=== PATIENT | male | born 1980 | race Caucasian/White ===

== ENCOUNTER 2021-06-27 11:13 | Emergency (ER) | payer OTHER, SELFPAY ==
--- NOTE | 2021-06-27 11:20 | ECG_ITS ---
Measurements Intervals [place] Rate: 111 P: 35 [place]: 163 QRS: 59 QRSD: 86 T: 42 QT: 324 QTc: 441 Interpretive Statements SINUS TACHYCARDIA OTHERWISE UNREMARKABLE ECG ABNORMAL RHYTHM ECG NO PREVIOUS ECG AVAILABLE FOR COMPARISON Electronically Signed On 06-28-2021 8:36:36 CDT by Braeden Cardoso M.D.
--- NOTE | 2021-06-27 11:30 | ED.ANXIETY ---
HPI - Anxiety General Chief Complaint: Anxiety Stated Complaint: numb body and face Time Seen by Provider: 06/27/21 11:30 Source: patient History of Present Illness HPI narrative: 41-year-old male, smoker with anxiety was driving when he developed --numbness and tingling was started in his jaw and spread to his entire body. Gradually his numbness and tingling resolved over a period of 20 minutes. No other focal neuro deficits. No speech abnormality. No weakness. -- Epigastric discomfort which has resolved. no nausea, vomiting or diarrhea. -- extremity trauma no history of drug or alcohol use blood sugar was noted to be 144 MD complaint: anxiety Onset (ago): minute(s) ( 30 minutes ago) Symptoms: extremity numbness/tingling and sense of impending doom Severity: severe Quality: constant Place: outdoors History of similar episodes: Yes Provoking factors: none known Relieving factors: nothing Exacerbating factors: nothing Associated symptoms: denies other symptoms Related Data Home Medications Medication Instructions Recorded Confirmed Saxenda 3 mg DAILY 06/27/21 06/27/21 atorvastatin 20 mg DAILY 06/27/21 06/27/21 escitalopram oxalate [Lexapro] 20 mg DAILY 06/27/21 06/27/21 trazodone 100 mg HS 06/27/21 06/27/21 Allergies Allergy/AdvReac Type Severity Reaction Status Date / Time aspirin Allergy Unknown Verified 06/27/21 11:28 Review of Systems Review of Systems: All systems reviewed & are unremarkable except as noted in HPI and below Constitutional: Constitutional: Reports as per HPI and Reports no additional constitutional complaints Eyes: Eyes: Reports as per HPI and Reports no additional eye complaints ENT: Reports system reviewed and no additional complaints, except as documented Cardiovascular: Cardiovascular: Reports as per HPI and Reports no additional cardiovascular complaints Respiratory: Respiratory: Reports as per HPI and Reports no additional respiratory complaints Gastrointestinal: Gastrointestinal: Reports as per HPI and Reports no additional gastrointestinal complaints Comments: epigastric discomfort Genitourinary: Genitourinary: Reports no additional male genitourinary complaints and Reports as per HPI Musculoskeletal: Musculoskeletal: Reports no additional musculoskeletal complaints and Reports as per HPI Integumentary/Breasts: Skin/Breast: Reports system reviewed and no additional complaints, except as docu and Reports as per HPI Neurologic: Reports system reviewed and no additional complaints, except as documented and Reports numbness Psychiatric: Psychiatric: Reports no additional psychiatric complaints, Reports as per HPI and Reports anxiety Endocrine: Endocrine: Reports no additional endocrine complaints and Reports as per HPI Hematologic/Lymphatic: Hematologic/Lymphatic: Reports no additional hematologic/lymphatic complaints and Reports as per HPI Allergic/Immunologic: Allergic/Immunologic: Reports no additional allergic/immunologic complaints and Reports as per HPI [facility] Past Medical History Medical History Anxiety Exam Const: General: no acute distress and alert Orientation/consciousness: patient oriented x3 Limitations: altered mental status HENMT: Head: normal to inspection Eyes: Conjunctivae: conjunctivae normal Pupils: Equal, round and reactive pupils present Neck: Neck: normal visual inspection, no lymphadenopathy and no meningeal signs Chest: Chest palpation & inspection: normal inspection of the chest Resp: Effort & Inspection: normal respiratory effort Auscultation: clear to auscultation bilaterally Cardio: Rate: regular rate Rhythm: regular rhythm Other: the patient was noted to be tachycardic and hypertensive with a heart rate of 110 a blood pressure of 140/110 which improved over the course of 20 minutes. GI: GI Palp: Yes Soft to palpation Other: no tenderness/rigidity /rebound : T
[2021-06-27 11:35] VITALS: BP 132/90; PULSE 112; RESP 20; TEMP 36.4; O2SAT 100
--- NOTE | 2021-06-27 11:54 | PC.NURSE ---
Pt states that he is feeling much better. Pt refused xanax. Pt's blood sugar is 144. ERP aware.
[2021-06-27 11:57] LABS: Glucose Point of Care 144 mg/dl (65-105)
[2021-06-27 11:59] VITALS: BP 134/97; PULSE 98; RESP 20; O2SAT 99
== END 2021-06-27 12:02 | disposition home or self-care (01) ==
PROVIDERS: Emergency Provider Internal Medicine Critical Care Medicine
DX: F41.9 Anxiety disorder, unspecified (principal)
CPT/HCPCS: 82948; 93005; 99283